=== PATIENT | female | born 1930 | race African-American/Black ===

== ENCOUNTER 2016-10-23 21:11 | Emergency (ER) | payer MEDICARE, OTHER ==
[~2016-10-23] VITALS: Ht 157.5 cm; Wt 49.9 kg
[~2016-10-23 21:11] MED LIST: NORVASC5 MG ORAL; RISPERDAL0.5 MG ORAL
[2016-10-23 21:20] VITALS: BP 152/75
--- NOTE | 2016-10-23 21:30 | Emergency Room Report ---
History of Present Illness General Chief Complaint: General Complaint Source: EMS Present Illness HPI The patient was brought in by EMS for cough. She also has an altered position of her neck. She is from home. There is very little other information present on the patient. The patient does not communicate at this time. Paramedics report abnormal O2 sats - but this is not documented. They also report OX3, but the patient has a h/o dementia and they also report GCS = 12. Allergies: Coded Allergies: PENICILLIN G (Verified Allergy, Unknown, 10/23/16) Patient History Limited by: medical condition Past Medical History: see triage record, HTN, dementia Social History Narrative home Now: No Reviewed Nursing Documentation: PMH: Agreed, PSxH: Agreed Nursing Documentation-PMH Past Medical History: No History, Except For Hx Hypertension: Yes Review of Systems All Other Systems: negative except mentioned in HPI Physical Exam Vital Signs Date Time Temp Pulse Resp B/P Pulse Ox O2 Delivery O2 Flow Rate FiO2 10/23/16 21:02 98.2 98 16 124/68 98 Room Air Sp02 EP Interpretation: reviewed, normal General Appearance: no apparent distress, Chronically Ill, Stupor Head: normocephalic Eyes: bilateral eye PERRL, bilateral eye normal inspection ENT: dry mucus membranes Neck: supple Respiratory: other - poor tidal volume Cardiovascular #1: regular rate, rhythm Cardiovascular #2: 2+ radial (R) Gastrointestinal: non tender, soft, no mass, abnormal bowel sounds - decreased Musculoskeletal: back normal, normal range of motion Neurologic: other - lethargic Psychiatric: other - stupor Skin: normal inspection, warm/dry Medical Decision Making Diagnostic Impression: Primary Impression: Influenza A Additional Impressions: UTI (urinary tract infection) Qualified Codes: N30.00 - Acute cystitis without hematuria Dehydration ER Course The patient presents with a cough at home. Differential includes pneumonia, bronchitis, COPD, asthma, CHF amongst others. Evaluation will be with EKG, laboratory including blood cultures lactates, urinalysis and chest x-ray. Patient will be treated with IV hydration and she appears dry. Based on x-ray we may start antibiotics. Patient more alert with fluids and oxygen. Lab + influenza A. Tamiflu begun. UA suggests UTI. CXR with L effusion and pleural process. Discussion with Dr. Bai at [facility]. States 2 view chest normal last month. Awaiting lytes and will discuss again. Patient stable for transfer to [facility]. Laboratory Tests Test 10/23/16 21:25 10/23/16 21:32 10/23/16 21:50 10/23/16 23:05 White Blood Count 10.3 K/UL (4.8-10.8) Red Blood Count 4.90 M/UL (4.20-5.40) Hemoglobin 14.8 G/DL (12.0-16.0) Hematocrit 44.9 % (37.0-47.0) Mean Corpuscular Volume 92 FL (80-99) Mean Corpuscular Hemoglobin 30.2 PG (27.0-31.0) Mean Corpuscular Hemoglobin Concent 32.9 G/DL (32.0-36.0) Red Cell Distribution Width 13.7 % (11.6-14.8) Platelet Count 137 K/UL (150-450) L Mean Platelet Volume 8.5 FL (6.5-10.1) Neutrophils (%) (Auto) 83.5 % (45.0-75.0) H Lymphocytes (%) (Auto) 11.9 % (20.0-45.0) L Monocytes (%) (Auto) 3.9 % (1.0-10.0) Eosinophils (%) (Auto) 0.0 % (0.0-3.0) Basophils (%) (Auto) 0.6 % (0.0-2.0) Prothrombin Time 11.1 SEC (9.30-11.50) Prothrombin Time INR 1.1 (0.9-1.1) PTT 24 SEC (23-33) Lactic Acid Level 1.80 mmol/L (0.66-2.22) Arterial Blood pH 7.451 (7.350-7.450) Arterial Blood Partial Pressure CO2 31.6 mmHg (35.0-45.0) L Arterial Blood Partial Pressure O2 44.3 mmHg (75.0-100.0) Arterial Blood HCO3 21.5 mmol/L (22.0-26.0) L Arterial Blood Oxygen Saturation 84.6 % (92.0-98.0) L Arterial Blood Base Excess -1.1 Antonino Test Positive Urine Color Yellow Urine Appearance Slightly cloudy Urine pH 5.0 (4.5-8.0) Urine Specific Brinson 1.015 (1.005-1.035) Urine Protein 2+ (NEGATIVE) H Urine Glucose (UA) Negative (NEGATIVE) Urine Ketones Negative (NEGATIVE) Urine Occult Blood 4+ (NEGATIVE) H Urine Nitrite Negative (NEGATIVE) Urine Bilirubin Negative (NEGATIVE) Urine Urobilinogen Normal MG/DL (0.0-1.0) Urine Leukocyte Esterase 1+ (NEGATIVE) H Urine RBC 10-15 /HPF (0 - 2) H Urine WBC 30-40 /HPF (0 - 2) H Urine Squamous Epithelial Cells Moderate /LPF (NONE/OCC) H Urine Bacteria Many /HPF (NONE) H Sodium Level 140 mEQ/L (135-145) Potassium Level 3.4 mEQ/L (3.4-4.9) Chloride Level 103 mEQ/L (98-107) Carbon Dioxide Level 19 mEQ/L (20-30) L Anion Gap 18 (5-15) H Blood Urea Nitrogen 11 mg/dL (7-23) Creatinine 0.9 mg/dL (0.5-0.9) Estimate Glomerular Filtration Rate mL/min (>60) Glucose Level 104 mg/dL (74-106) Calcium Level 7.6 mg/dL (8.6-10.2) L Total Bilirubin 0.4 mg/dL (0.0-1.2) Aspartate Amino Transferase (AST) 53 U/L (5-40) H Alanine Aminotransferase (ALT) 12 U/L (3-33) Alkaline Phosphatase 84 U/L (35-104) Total Creatine Kinase 1531 U/L (26-140) H Troponin I < 0.30 ng/mL (<=0.30) Pro-B-Type Natriuretic Peptide Pending Total Protein 5.5 g/dL (6.6-8.7) L Albumin 3.3 g/dL (3.5-5.2) L Globulin 2.2 g/dL Albumin/Globulin Ratio 1.5 (1.0-2.7) Microbiology Date/Time Source Procedure Growth Status 10/23/16 21:50 Nasal Nares Influenza Types A,B Antigen (JD) - Final Complete EKG Diagnostic Results Rate: normal Rhythm: NSR ST Segments: no acute changes Rhythm Strip Diag. Results EP Interpretation: yes Rhythm: NSR, no PVC's, no ectopy Chest X-Ray Diagnostic Results EP Interpretation: Yes Findings: no pneumothorax, other - effusion and L pleural reaction with possible infiltrate - L clavicular fx (clinically not tender there) Number of Views: 1 Last Vital Signs Date Time Temp Pulse Resp B/P Pulse Ox O2 Delivery O2 Flow Rate FiO2 10/24/16 01:30 98.4 92 22 118/62 100 Nasal Cannula 4.0 Status: improved Disposition: XFER [facility] Condition: Serious - but stable for transfer Yahir Shaver M.D. Oct 23, 2016 21:30
[2016-10-23 21:42] LABS: ABG PCO2 31.6 mmHg (35.0-45.0)
[2016-10-23 21:43] LABS: ABG ALLEN TEST POSITIVE; ABG BASE EXCESS -1.1
[2016-10-23 22:00] LABS: BASOPHILS % (AUTO) 0.6 % (0.0-2.0); LYMPHOCYTES % (AUTO) 11.9 % (20.0-45.0); MEAN CORPUSCULAR HEMOGLOBIN 30.2 PG (27.0-31.0); MEAN CORPUSCULAR HGB CONC 32.9 G/DL (32.0-36.0); MEAN CORPUSCULAR VOLUME 92 FL (80-99); MEAN PLATELET VOLUME 8.5 FL (6.5-10.1); MONOCYTES % (AUTO) 3.9 % (1.0-10.0); NEUTROPHILS % (AUTO) 83.5 % (45.0-75.0); PLATELET COUNT 137 K/UL (150-450); RED CELL DISTRIBUTION WIDTH 13.7 % (11.6-14.8); WHITE BLOOD COUNT 10.3 K/UL (4.8-10.8)
[2016-10-23] MEDS ORDERED: cefTRIAXone 1 GM in NS 55 ML IVPB ONE (22:00)
[2016-10-23 22:11] LABS: INR 1.1 (0.9-1.1); PROTHROMBIN TIME 11.1 SEC (9.30-11.50)
[2016-10-23 22:17] LABS: APPEARANCE,URINE SLIGHTLY CLOUDY; KETONES,URINE NEGATIVE (NEGATIVE); LEUKOCYTE ESTERASE ,URINE 1+ (NEGATIVE); NITRITE,URINE NEGATIVE (NEGATIVE); PROTEIN,URINE 2+ (NEGATIVE); UROBILINOGEN,URINE NORMAL MG/DL (0.0-1.0)
[2016-10-23 22:21] VITALS: BP 152/75
[2016-10-23 22:33] LABS: BACTERIA,URINE MANY /HPF; SQUAMOUS EPITHELIAL CELL,UR MODERATE /LPF (NONE/OCC); WBC,URINE 30-40 /HPF (0 - 2)
[2016-10-23] MEDS ORDERED: Oseltamivir 75mg cap ORAL ONE (23:00)
[2016-10-23 23:30] LABS: ALANINE AMINOTRANSFERASE 12 U/L (3-33); ALBUMIN/GLOBULIN RATIO 1.5 (1.0-2.7); ANION GAP 18 (5-15); ASPARTATE AMINO TRANSFERASE 53 U/L (5-40); CALCIUM 7.6 mg/dL (8.6-10.2); CARBON DIOXIDE 19 mEQ/L (20-30); CHLORIDE 103 mEQ/L (98-107); CREATININE 0.9 mg/dL (0.5-0.9); HEMOLYSIS 6; POTASSIUM 3.4 mEQ/L (3.4-4.9); SODIUM 140 mEQ/L (135-145); TOTAL PROTEIN 5.5 g/dL (6.6-8.7); TROPONIN I < 0.30 ng/mL (<=0.30)
[2016-10-24 00:13] VITALS: BP 114/62
[2016-10-24 01:30] VITALS: BP 118/62
--- NOTE | 2016-10-24 11:50 | Diagnostic Imaging Report ---
Indication: COUGH Technique: One view of the chest Comparison: none Findings: There is atelectasis at left lung base. There is atelectasis or scarring at the right lung base. Blunting of the left costophrenic sulcus may indicate a small amount of pleural fluid. The heart is mildly enlarged. Aorta is elongated tortuous and calcified. The upper mediastinum is unremarkable. There is fracture deformity, age and degree of union indeterminate, of the left clavicle. Impression: Left basilar atelectasis and possible pleural fluid Minimal right basilar atelectasis or scarring Left clavicular fracture. Correlate with clinical findings This agrees with the preliminary interpretation provided by the emergency room physician
--- NOTE | 2016-10-25 20:22 | Cardiology Report ---
APPROVED REPORT EKG Measurement Heart [id number] Normal sinus rhythm Normal ECG
== END 2016-10-24 01:30 | disposition short-term general hospital (02) ==
LOC: EDBD 21:11 → EMR 21:41
DX: J10.1 Influenza due to other identified influenza virus with other respiratory manifestations (principal); N39.0 Urinary tract infection, site not specified; E86.0 Dehydration; I10 Essential (primary) hypertension; Z88.0 Allergy status to penicillin; M84.412A Pathological fracture, left shoulder, initial encounter for fracture
CPT/HCPCS: 36415; 36600; 71010; 80053; 81003; 82550; 82803; 83605; 83880; 84484; 85025; 85610; 85730; 86710; 87040; 87086; 87181; 93005; 96360; 96361; 99285; J0696

== ENCOUNTER 2017-10-05 09:51 | Emergency (ER) | payer OTHER, MEDICARE ==
[~2017-10-05] VITALS: Ht 162.6 cm; Wt 68.0 kg
[2017-10-05 10:08] VITALS: BP 163/72
[2017-10-05] MEDS ORDERED: AMLODIPINE BESY10 MG ORAL (10:11)
[2017-10-05] MEDS ORDERED: ASPIR 8181 MG ORAL (10:11)
[2017-10-05] MEDS ORDERED: RISPERIDONE2 MG ORAL (10:11)
[2017-10-05] MEDS ORDERED: SERTRALINE HCL100 MG PO (10:11)
[2017-10-05] MEDS ORDERED: LORAZEPAM0.5 MG ORAL (10:11)
[2017-10-05] MEDS ORDERED: STOOL SOFTENER1 EAC3 PO (10:11)
[2017-10-05] MEDS ORDERED: RISPERIDONE1 MG/1 ML PO (10:11)
[2017-10-05] MEDS ORDERED: MIRALAX17 G2 ORAL (10:11)
--- NOTE | 2017-10-05 11:19 | Diagnostic Imaging Report ---
Indication: Hip pain Technique: continuous helical imaging in the transaxial plane was performed from the iliac crests to the pubic symphysis with attention to the right hip. Coronal 2-D reformatted images were also generated. Study obtained in a Siemens Sensation [address] total DLP: 407.19 mGycm CTD/vol: 14.76 mGy Comparison: None Findings: The right femoral head and neck appear intact. There is no malalignment of the right hip joint. There is an acute comminuted fracture of the right ilium in the area of the iliac wing. The fracture extends to the area of the anterior superior iliac spine. There is asymmetric enlargement of the right Iliacus muscle and soft tissue swelling just lateral to the right iliac wing consistent with a soft tissue contusion. The bones are osteopenic. Moderate degenerative changes of the visualized part of the lower lumbar spine demonstrated. Staple line noted in association with small bowel in the lower abdomen. Arteriovascular consultations are present. There is moderate retention of feces in the visualized colon. IMPRESSION: Acute fracture of the right iliac wing extending into the iliac fossa. There is involvement of the anterior superior iliac spine. Associated soft tissue contusion as discussed above. No acute fracture of the hip identified. Generalized osteopenia. Degenerative spondylosis of the visualized lower lumbar spine. Evidence of previous bowel surgery the nature of which is not known. The CT scanner at [facility] is accredited by the [employer] and the scans are performed using dose optimization techniques as appropriate to a performed exam including Automatic Exposure control.
--- NOTE | 2017-10-05 11:31 | Emergency Room Report ---
History of Present Illness General Chief Complaint: Multiple Trauma/Fall Source: Patient Present Illness HPI 86-year-old female, brought by [employer] administrator, for fall. Lab Aide was assisting her to the bathroom, patient's legs gave out and she fell onto her buttocks. No head trauma no LOC. Now complaining of pain to the right hip. No other complaints Allergies: Coded Allergies: PENICILLIN G (Verified Allergy, Unknown, 10/23/16) Patient History Past Medical History: see triage record Past Surgical History: none Pertinent Family History: none Reviewed Nursing Documentation: PMH: Agreed, PSxH: Agreed Nursing Documentation-PMH Past Medical History: No History, Except For Hx Cardiac Problems: Yes - Atherosclerosis of aorta, bilateral open glaucoma, dry eye syndrome Hx Hypertension: Yes - osteoporosis History Of Psychiatric Problem: Yes - Anxiety Hx Neurological Problems: Yes - AMS, Dementia Review of Systems All Other Systems: negative except mentioned in HPI Physical Exam Vital Signs Date Time Temp Pulse Resp B/P (MAP) Pulse Ox O2 Delivery O2 Flow Rate FiO2 10/05/17 09:58 97.2 83 16 180/72 95 Room Air Sp02 EP Interpretation: reviewed, normal General Appearance: alert, GCS 15, non-toxic, mild distress Head: normocephalic, atraumatic Eyes: bilateral eye normal inspection, bilateral eye PERRL, bilateral eye EOMI ENT: normal ENT inspection, normal pharynx, normal voice, moist mucus membranes Neck: normal inspection, full range of motion, supple Respiratory: normal inspection, lungs clear, normal breath sounds, no respiratory distress, no retraction, no wheezing, speaking full sentences, chest symmetrical Cardiovascular #1: normal inspection, regular rate, rhythm, no edema, normal capillary refill Cardiovascular #2: 2+ radial (R), 2+ radial (L) Gastrointestinal: normal inspection, non tender, soft, non-distended, no guarding Musculoskeletal: other - Right hip is tender to palpation, limited range of motion secondary to pain, limb is not shortened or rotated, distal pulses are intact, no ecchymosis Neurologic: normal inspection, alert, oriented x3, responsive, motor strength/ tone normal, sensory intact, speech normal Psychiatric: normal inspection, judgement/insight normal, memory normal Skin: normal inspection, normal color, no rash, warm/dry, well hydrated, normal turgor Medical Decision Making Diagnostic Impression: Primary Impression: Fracture of iliac wing ER Course 86-year-old female presents with fall, now with right hip pain DDX: Contusion versus fracture Plan: Pain control, CT hip ER course: Patient has remained stable during ED stay. Fracture of iliac crest noted, I spoke with orthopedic doctor Henry, conservative treatment only. Patient is not require admission Lab Aide instructred to be with patient 10/04. and not have patient walk Disposition: Patient is to be discharged to home with [employer] administrator Prescriptions given are Tylenol Patient is instructed to follow up with orthopedics in 1 week Strict return precautions discussed with patient such as fever, chills, worsening/severe pain, chest pain, SOB, nausea, vomiting, which may indicate severe illness. Patient verbalizes understanding and agrees with plan. Please note that this Emergency Department Report was dictated using [employer] stucco technology software, occasionally this can lead to erroneous entry secondary to interpretation by the dictation equipment CT/MRI/US Diagnostic Results CT/MRI/US Diagnostic Results : Imaging Test Ordered: CT hip Impression Findings: The right femoral head and neck appear intact. There is no malalignment of the right hip joint. There is an acute comminuted fracture of the right ilium in the area of the iliac wing. The fracture extends to the area of the anterior superior iliac spine. There is asymmetric enlargement of the right Iliacus muscle and soft tissue swelling just lateral to the right iliac wing consistent with a soft tissue contusion. The bones are osteopenic. Moderate degenerative changes of the visualized part of the lower lumbar spine demonstrated. Staple line noted in association with small bowel in the lower abdomen. Arteriovascular consultations are present. There is moderate retention of feces in the visualized colon. IMPRESSION: Acute fracture of the right iliac wing extending into the iliac fossa. There is involvement of the anterior superior iliac spine. Associated soft tissue contusion as discussed above. No acute fracture of the hip identified. Generalized osteopenia. Degenerative spondylosis of the visualized lower lumbar spine. Evidence of previous bowel surgery the nature of which is not known. Last Vital Signs Date Time Temp Pulse Resp B/P (MAP) Pulse Ox O2 Delivery O2 Flow Rate FiO2 10/05/17 10:08 80 19 163/72 98 Room Air 10/05/17 09:58 97.2 Disposition: HOME, SELF-CARE Condition: Stable Scripts Acetaminophen* (TYLENOL EXTRA STRENGTH*) 500 Mg Tablet 500 MG ORAL Q8H Y for Prn Headache/Temp > 101, #30 TAB 0 Refills Prov: Casimiro Hauser M.D. 10/05/17 Casimiro Hauser M.D. Oct 05, 2017 11:31
[2017-10-05] MEDS ORDERED: TYLENOL EXTRA500 MG ORAL (11:44)
[2017-10-05 12:45] VITALS: BP 137/67
[2017-10-05 13:15] VITALS: BP 137/67
== END 2017-10-05 13:15 | disposition home or self-care (01) ==
LOC: EMR 12:00
DX: S32.301A Unspecified fracture of right ilium, initial encounter for closed fracture (principal); W19.XXXA Unspecified fall, initial encounter; Y92.002 Bathroom of unspecified non-institutional (private) residence as the place of occurrence of the external cause; Z88.0 Allergy status to penicillin; H40.10X0 Unspecified open-angle glaucoma, stage unspecified; F03.90 Unspecified dementia, unspecified severity, without behavioral disturbance, psychotic disturbance, mood disturbance, and anxiety; F41.9 Anxiety disorder, unspecified; M85.80 Other specified disorders of bone density and structure, unspecified site; M47.816 Spondylosis without myelopathy or radiculopathy, lumbar region
CPT/HCPCS: 99284

== ENCOUNTER 2017-11-24 15:25 | Emergency (ER) | payer MEDICARE, OTHER ==
[~2017-11-24] VITALS: Ht 167.6 cm; Wt 49.9 kg
[~2017-11-24 15:25] MED LIST changes: +AMLODIPINE BESY10 MG ORAL; +ASPIR 8181 MG ORAL; +LORAZEPAM0.5 MG ORAL; +MIRALAX17 G2 ORAL; +RISPERIDONE1 MG/1 ML PO; +RISPERIDONE2 MG ORAL; +SERTRALINE HCL100 MG PO; +STOOL SOFTENER1 EAC3 PO; +TYLENOL EXTRA500 MG ORAL
[2017-11-24 15:43] VITALS: BP 116/66
[2017-11-24] MEDS ORDERED: CRANBERRY300 MG PO (16:13)
[2017-11-24] MEDS ORDERED: Lidocaine 1% MPF 10mg/ml 5ml INJ ONE (16:15)
--- NOTE | 2017-11-24 17:47 | Emergency Room Report ---
History of Present Illness General Chief Complaint: Skin Rash/Abscess Source: Patient, Medical Record Present Illness HPI 86-year-old female presents to the emergency department brought with caregiver from boarding care for abscess on the buttock. Patient denies pain at this time she states that she is legally blind and she does not walk on her own without assistance due to frequent falls. Caregiver reports swelling, erythema and abscess to the left buttock. Denies fevers or chills. Denies lesions elsewhere on the body. Denies history of abscess or skin ulcers. Denies CP, Palpitations, LOC, AMS, dizziness, Changes in Sensation, paresthesias, or a sudden severe headache. Allergies: Coded Allergies: PENICILLIN G (Verified Allergy, Unknown, 10/23/16) Patient History Past Medical History: see triage record Past Surgical History: none Pertinent Family History: none Now: No Reviewed Nursing Documentation: PMH: Agreed, PSxH: Agreed Nursing Documentation-PMH Past Medical History: No History, Except For Hx Cardiac Problems: Yes - Atherosclerosis of aorta, bilateral open glaucoma, dry eye syndrome Hx Hypertension: Yes - osteoporosis Hx Neurological Problems: Yes - AMS, Dementia Review of Systems All Other Systems: negative except mentioned in HPI Physical Exam Vital Signs Date Time Temp Pulse Resp B/P (MAP) Pulse Ox O2 Delivery O2 Flow Rate FiO2 11/24/17 15:30 97.9 77 18 116/66 95 Room Air 97.9 Sp02 EP Interpretation: reviewed, normal General Appearance: no apparent distress, alert, GCS 15, non-toxic, Chronically Ill Head: normocephalic, atraumatic ENT: hearing grossly normal, normal voice Neck: full range of motion Respiratory: chest non-tender, lungs clear, normal breath sounds, no respiratory distress, no accessory muscle use, no wheezing, speaking full sentences Cardiovascular #1: regular rate, rhythm, no edema, normal capillary refill Rectal: deferred, other - Abscess of the left buttock- fluctuant and weeping with purulence, there is 2cm area of induration palpated.. there is also superficial decubitus ulcer noted about the abscess and extends Musculoskeletal: back normal, normal range of motion, non-tender Neurologic: alert, oriented x3, responsive, motor strength/tone normal, sensory intact, speech normal, grossly normal Psychiatric: judgement/insight normal, mood/affect normal Skin: warm/dry, well hydrated, other - Abscess of the left buttock- fluctuant and weeping with purulence, there is 2cm area of induration palpated.. there is also superficial decubitus ulcer noted about the abscess and extends Procedures Incision and Drainage Incision and Drainage : Consent: Verbal Site: Left Buttock Blade Size: 11 I & D Procedure: betadine prep Wound Location: other - left buttock Wound's Depth, Shape: superficial, linear Wound Length (cm): 1 Wound Explored: contaminated Anesthesia: 1% Lidocaine Volume Anesthetic (ccs): 2 Splint Applied?: No Sling Applied?: No Patient Tolerated: Well Complications: None Progress wound packing placed. Medical Decision Making PA Attestation Dr. Delcid is my supervising Physician whom patient management has been discussed with. Diagnostic Impression: Primary Impression: Abscess Additional Impression: Decubitus skin ulcer Qualified Codes: L89.301 - Pressure ulcer of unspecified buttock, stage 1 ER Course Pt. presents to the ED c/o pain, swelling, and erythema of LEFt side of buttock , decub ulcer beginning no sacrum as well. Pt. is blind, lives at board and care , has a caregiver. Ddx considered but are not limited to cellulitis, abscess, cystic acne, necrotizing fasciitis, insect bite. Vital signs: are WNL, pt. is afebrile H&PE are most consistent with Abscess of the left buttock- fluctuant and weeping with purulence, there is 2cm area of induration palpated.. there is also superficial decubitus ulcer noted about the abscess and extends across the sacrum. ORDERS: none required at this time, the diagnosis is clinical ED INTERVENTIONS: -I & D. - Wound Packing -d/w pt. return in 48 hour for Wound Check. - kennedi baldwin was d/w caregiver upon d/c and career and guidance counselor states she most likely will follow up with her PCP. DISCHARGE: At this time pt. is stable for d/c to home. Will provide printed patient care instructions, and any necessary prescriptions. Care plan and follow up instructions have been discussed with the patient prior to discharge. Last Vital Signs Date Time Temp Pulse Resp B/P (MAP) Pulse Ox O2 Delivery O2 Flow Rate FiO2 11/24/17 15:43 97.9 77 18 116/66 95 Room Air 97.9 Disposition: HOME, SELF-CARE Condition: Stable Scripts Acetaminophen* (TYLENOL EXTRA STRENGTH*) 500 Mg Tablet 500 MG ORAL Q6H, #20 TAB 0 Refills Prov: Emely Atkins 11/24/17 Clindamycin Hcl (CLINDAMYCIN HCL) 300 Mg Capsule 300 MG ORAL FOUR TIMES A DAY for 7 Days, #28 CAP Prov: Emely Atkins 11/24/17 Referrals: [facility] (PCP) Patient Instructions: Abscess, Pressure Ulcer Additional Instructions: Take medications as directed. RETURN IN 48 HOURS FOR WOUND CHECK and Possible Packing REMOVAL Turn or move positioning off the sacrum/buttock every 2 hours. Follow up with a Primary Care Provider in 3-5 days, even if your symptoms have resolved. --Please review list of primary care clinics, if you do not already have a primary care provider Return sooner to ED if new symptoms occur, or current symptoms become worse. - Please note that this Emergency Department Report was dictated using [employer] player technology software, occasionally this can lead to erroneous entry secondary to interpretation by the dictation equipment. Emely Atkins Nov 24, 2017 17:47
[2017-11-24] MEDS ORDERED: CLINDAMYCIN HC300 MG ORAL (17:49)
[2017-11-24] MEDS ORDERED: TYLENOL EXTRA500 MG ORAL (17:49)
[2017-11-24 17:53] VITALS: BP 113/63
[2017-11-24 19:12] VITALS: BP 113/63
== END 2017-11-24 19:12 | disposition home or self-care (01) ==
LOC: EMR 16:51
DX: L02.31 Cutaneous abscess of buttock (principal); L89.329 Pressure ulcer of left buttock, unspecified stage; I10 Essential (primary) hypertension; F03.90 Unspecified dementia, unspecified severity, without behavioral disturbance, psychotic disturbance, mood disturbance, and anxiety; M81.0 Age-related osteoporosis without current pathological fracture; Z88.0 Allergy status to penicillin
CPT/HCPCS: 10060; 99284

== ENCOUNTER 2018-03-17 11:48 | Emergency (ER) | payer MEDICARE, OTHER ==
[~2018-03-17] VITALS: Ht 162.6 cm; Wt 68.0 kg
[~2018-03-17 11:48] MED LIST changes: +CLINDAMYCIN HC300 MG ORAL; +CRANBERRY300 MG PO
[2018-03-17] MEDS ORDERED: Aspirin Baby 81mg ORAL ONE (12:15)
[2018-03-17] MEDS ORDERED: LORAZEPAM0.5 MG ORAL (12:18)
[2018-03-17] MEDS ORDERED: MIRALAX17 G2 ORAL (12:18)
[2018-03-17 12:48] LABS: BASOPHILS % (AUTO) 0.8 % (0.0-2.0); EOSINOPHILS % (AUTO) 1.3 % (0.0-3.0); HEMATOCRIT 43.5 % (37.0-47.0); HEMOGLOBIN 14.4 G/DL (12.0-16.0); LYMPHOCYTES % (AUTO) 25.4 % (20.0-45.0); MEAN CORPUSCULAR VOLUME 90 FL (80-99); MONOCYTES % (AUTO) 8.3 % (1.0-10.0); NEUTROPHILS % (AUTO) 64.1 % (45.0-75.0); PLATELET COUNT 325 K/UL (150-450); RED BLOOD COUNT 4.83 M/UL (4.20-5.40); RED CELL DISTRIBUTION WIDTH 13.4 % (11.6-14.8)
--- NOTE | 2018-03-17 12:53 | Emergency Room Report ---
History of Present Illness General Chief Complaint: General Complaint Source: Medical Record Present Illness HPI 87-year-old female patient presents to ER brought in by caretakers with multiple complaints. Reports lesion on right lower leg since yesterday. Reports patient has been itching and has worsened since that time. Also complains of pain near right breast for the past few days, Reports reproducible pain, worse with certain movements. [employer] Secrecy Act Officer also reports smelling odor and patient's urine, patient denies dysuria, hematuria. Denies fever, chest pain, shortness of breath, vomiting, diarrhea. Denies history of IA or stroke. Reports last mammogram a few months ago, no abnormal results. Denies taking blood thinners. denies coughing or recent injury. Allergies: Coded Allergies: AMITRIPTYLINE (Verified Allergy, Unknown, 03/17/18) HYDROCHLOROTHIAZIDE (Verified Allergy, Unknown, 03/17/18) LISINOPRIL (Verified Allergy, Unknown, 03/17/18) PENICILLIN G (Verified Allergy, Unknown, 10/23/16) PROCAINE (Verified Allergy, Unknown, 03/17/18) Uncoded Allergies: EGGS (Allergy, Unknown, 03/17/18) INFLUENZA VACCINE (Allergy, Unknown, 03/17/18) PNEUMOCCAL VACCINE (Allergy, Unknown, 03/17/18) Patient History Past Medical History: see triage record Reviewed Nursing Documentation: PMH: Agreed; PSxH: Agreed Nursing Documentation-PMH Past Medical History: No History, Except For Hx Cardiac Problems: Yes - Atherosclerosis of aorta, bilateral open glaucoma, dry eye syndrome Hx Hypertension: Yes - osteoporosis Hx Neurological Problems: Yes - AMS, Dementia Review of Systems All Other Systems: negative except mentioned in HPI Physical Exam Vital Signs Date Time Temp Pulse Resp B/P (MAP) Pulse Ox O2 Delivery O2 Flow Rate FiO2 03/17/18 11:59 98.1 78 16 111/64 96 Room Air 98.1 Sp02 EP Interpretation: reviewed, normal General Appearance: well appearing, no apparent distress, alert, GCS 15, non- toxic Head: normocephalic, atraumatic Eyes: bilateral eye normal inspection, bilateral eye PERRL ENT: hearing grossly normal, normal pharynx, no angioedema, normal voice, uvula midline, moist mucus membranes Neck: full range of motion Respiratory: lungs clear, normal breath sounds, no rhonchi, no respiratory distress, no accessory muscle use, no wheezing, speaking full sentences, other - right anterior upper chest TTP, no deformity, no flail chest Cardiovascular #1: regular rate, rhythm, no edema Cardiovascular #2: 2+ radial (R), 2+ radial (L) Gastrointestinal: non tender, soft, no mass, non-distended, no guarding, no rebound Genitourinary: no CVA tenderness Musculoskeletal: back normal, digits/nails normal, normal range of motion, non- tender, no calf tenderness, Wilton's Sign negative Neurologic: alert, oriented x3, responsive, motor strength/tone normal, sensory intact Psychiatric: mood/affect normal Skin: other - right lower leg, lateral midshaft: 2 cm lesion, mild scabbing present, no active bleeding, no active drainage, no central clearing, no vesicles, no surrounding erythema or edema Medical Decision Making PA Attestation Dr. Muhammad is my supervising Physician whom patient management has been discussed with. Diagnostic Impression: Primary Impression: UTI (urinary tract infection) Additional Impressions: Skin lesion of right lower limb Rib pain on right side ER Course Pt. presents to the ED c/o skin lesion, right upper rib pain and foul-smelling urine. multiple differentials considered. Vital signs: are WNL, pt. is afebrile ER course: Lesion on leg superficial, no signs of cellulitis, no surrounding erythema or edema, worsening of symptoms likely due to patient scratching. Instructed not to scratch. Will provide topical treatment for patient. keep clean and dry. applied bacitracin to wound in ER. physical exam shows tenderness to palpation of right upper quadrant, no signs of breast abscess, no palpable masses, no rash. Likely musculoskeletal pain. Will order chest x-ray to rule out underlying etiology. instructed patient to take Tylenol for relief of symptoms. Negative troponin, negative cardiac workup, follow-up with primary care provider for further treatment and referral as needed. CBC and CMP unremarkable, no elevation in troponin, white blood cell count or LFTs. EKGs shows no ST elevations. Low suspicion for IA. chest x-ray shows decreased lung volumes, atelectasis. May be rotational. Low suspicion for aortic dissection. UA positive for leukocyte esterase, too numerous to count white blood cells, bacteria, likely UTI, will provide antibiotic treatment for patient, patient denies fever, vomiting, abdominal pain, does not require admission for antibiotic treatment at this time. patient resting comfortably, in no acute distress, nontoxic-appearing, no acute complaints, no chest pain, shortness of breath, abdominal pain patient okay for discharge to home. Patient will be taken back home by caretakers. consult , patient seen and evaluated by him, agrees with evaluation and treatment plan. DISCHARGE: Rx provided for Levaquin Rx provided for Bactroban At this time pt is stable for d/c to home. Patient is resting comfortably, in no acute distress, nontoxic appearing, talking without difficulty. Patient to take medications as instructed Will provide with patient care instructions and any necessary prescriptions. Care plan and follow-up instructions provided. Patient instructed to follow-up with primary care provider in 3 - 5 days. Patient questions asked and answered. Patient reports understanding and agreement to treatment plan. ER precautions given. Patient instructed to return to ER immediately for any new or worsening of symptoms including but not limited to increasing SOB, persistent fever, chest pain, intractable vomiting. - Please note that this Emergency Department Report was dictated using [employer] instructor technology software, occasionally this can lead to erroneous entry secondary to interpretation by the dictation equipment. Labs Test 03/17/18 12:35 03/17/18 13:20 White Blood Count 10.0 K/UL (4.8-10.8) Red Blood Count 4.83 M/UL (4.20-5.40) Hemoglobin 14.4 G/DL (12.0-16.0) Hematocrit 43.5 % (37.0-47.0) Mean Corpuscular Volume 90 FL (80-99) Mean Corpuscular Hemoglobin 29.8 PG (27.0-31.0) Mean Corpuscular Hemoglobin Concent 33.1 G/DL (32.0-36.0) Red Cell Distribution Width 13.4 % (11.6-14.8) Platelet Count 325 K/UL (150-450) Mean Platelet Volume 6.7 FL (6.5-10.1) Neutrophils (%) (Auto) 64.1 % (45.0-75.0) Lymphocytes (%) (Auto) 25.4 % (20.0-45.0) Monocytes (%) (Auto) 8.3 % (1.0-10.0) Eosinophils (%) (Auto) 1.3 % (0.0-3.0) Basophils (%) (Auto) 0.8 % (0.0-2.0) Sodium Level 138 MMOL/L (136-145) Potassium Level 3.9 MMOL/L (3.5-5.1) Chloride Level 103 MMOL/L (98-107) Carbon Dioxide Level 28 MMOL/L (21-32) Anion Gap 7 mmol/L (5-15) Blood Urea Nitrogen 17 mg/dL (7-18) Creatinine 1.3 MG/DL (0.55-1.30) Estimat Glomerular Filtration Rate mL/min (>60) Glucose Level 100 MG/DL (74-106) Calcium Level 9.3 MG/DL (8.5-10.1) Total Bilirubin 0.3 MG/DL (0.2-1.0) Aspartate Amino Transf (AST/SGOT) 29 U/L (15-37) Alanine Aminotransferase (ALT/SGPT) 21 U/L (12-78) Alkaline Phosphatase 111 U/L (46-116) Total Creatine Kinase 349 U/L (26-308) Creatine Kinase MB 1.9 NG/ML (0.0-3.6) Creatine Kinase MB Relative Index 0.5 Troponin I 0.000 ng/mL (0.000-0.056) Total Protein 7.3 G/DL (6.4-8.2) Albumin 3.0 G/DL (3.4-5.0) Globulin 4.3 g/dL Albumin/Globulin Ratio 0.7 (1.0-2.7) Lipase 297 U/L (73-393) Urine Color Pale yellow Urine Appearance Cloudy Urine pH 6 (4.5-8.0) Urine Specific [place] 1.015 (1.005-1.035) Urine Protein 2+ (NEGATIVE) Urine Glucose (UA) Negative (NEGATIVE) Urine Ketones Negative (NEGATIVE) Urine Occult Blood 3+ (NEGATIVE) Urine Nitrite Negative (NEGATIVE) Urine Bilirubin Negative (NEGATIVE) Urine Urobilinogen Normal MG/DL (0.0-1.0) Urine Leukocyte Esterase 3+ (NEGATIVE) Urine RBC 5-10 /HPF (0 - 2) Urine WBC Tntc /HPF (0 - 2) Urine Squamous Epithelial Cells Few /LPF (NONE/OCC) Urine Bacteria Moderate /HPF (NONE) EKG Diagnostic Results Rate: normal Rhythm: NSR ST Segments: no acute changes ASA given to the pt in ED: Yes HAY ScribAlpesh Nunn PA-C Rhythm Strip Diag. Results EP Interpretation: yes Rate: 73 Rhythm: NSR Other Impression premature atrial complexes no ST elevations HAY Scribe Chari Nunn PA-C Chest X-Ray Diagnostic Results Chest X-Ray Diagnostic Results : Chest X-Ray Ordered: Yes # of Views/Limited/Complete: 1 View Indication: Chest Pain EP Interpretation: Yes PA Xray: Interpretation reviewed, by supervising MD, and agrees with findings. Interpretation: no effusion, no pneumothorax, other - decreased lung volumes , atelectasis in left lung base and right lung bases, no fracture HAY Scribe Chari Nunn PA-C Last Vital Signs Date Time Temp Pulse Resp B/P (MAP) Pulse Ox O2 Delivery O2 Flow Rate FiO2 03/17/18 11:59 98.1 78 16 111/64 96 Room Air 98.1 Disposition: HOME, SELF-CARE Condition: Stable Scripts Levofloxacin* (LEVAQUIN*) 750 Mg Tablet 750 MG ORAL DAILY for 7 Days, #7 TAB Prov: Ac Nunn 03/17/18 Mupirocin Calcium (Bactroban) 15 Gm Cream..g. 1 APPLIC TOPIC THREE TIMES A DAY, #15 GM Prov: Ac Nunn 03/17/18 Patient Instructions: Abrasion, [id number], Rib Contusion, Urinary Tract Infection, [id number] Additional Instructions: Followup with primary care provider and followup with and./or OBGYN. Drink plenty of fluids. Take medications as directed. Follow-up with PCP and discuss referral to cardiology as needed. Keep wound clean and dry. Do not scratch. Patient questions asked and answered. ER precautions given, patient instructed to return to ER immediately for any new or worsening of symptoms. Ac Nunn Mar 17, 2018 12:53
[2018-03-17 13:00] VITALS: BP 136/64
[2018-03-17] MEDS ORDERED: Acetaminophen 500mg (ES) tab ORAL ONE (13:00)
[2018-03-17 13:01] LABS: ANION GAP 7 mmol/L (5-15); BLOOD UREA NITROGEN 17 mg/dL (7-18); CALCIUM 9.3 MG/DL (8.5-10.1); CARBON DIOXIDE 28 MMOL/L (21-32); CHLORIDE 103 MMOL/L (98-107); CREATININE 1.3 MG/DL (0.55-1.30); POTASSIUM 3.9 MMOL/L (3.5-5.1); SODIUM 138 MMOL/L (136-145)
--- NOTE | 2018-03-17 13:08 | Diagnostic Imaging Report ---
EXAM: XR Chest, 1 View CLINICAL HISTORY: PAIN TECHNIQUE: Frontal view of the chest. COMPARISON: No relevant prior studies available. FINDINGS: Lungs: Reduced lung volumes with consolidative atelectasis in the left lung base and linear atelectasis in the right lung base. Pleural space: Unremarkable. No pneumothorax. Heart: Unremarkable. No cardiomegaly. Mediastinum: Unremarkable. Bones/joints: No acute fracture. Old left clavicle fracture IMPRESSION: Reduced lung volumes with consolidative atelectasis in the left lung base and linear atelectasis in the right lung base.
[2018-03-17 13:13] LABS: ALANINE AMINOTRANSFERASE 21 U/L (12-78); ALBUMIN/GLOBULIN RATIO 0.7 (1.0-2.7); ALKALINE PHOSPHATASE 111 U/L (46-116); ASPARTATE AMINO TRANSFERASE 29 U/L (15-37); BILIRUBIN,TOTAL 0.3 MG/DL (0.2-1.0); CKMB 1.9 NG/ML (0.0-3.6); CREATINE KINASE 349 U/L (26-308)
[2018-03-17] MEDS ORDERED: Bacitracin Oint UD TOPIC ONE (13:30)
[2018-03-17 14:03] LABS: APPEARANCE,URINE CLOUDY; BILIRUBIN, URINE NEGATIVE (NEGATIVE); COLOR,URINE PALE YELLOW; GLUCOSE, URINE (UA) NEGATIVE (NEGATIVE); KETONES,URINE NEGATIVE (NEGATIVE); LEUKOCYTE ESTERASE ,URINE 3+ (NEGATIVE); NITRITE,URINE NEGATIVE (NEGATIVE); PH,URINE 6 (4.5-8.0); PROTEIN,URINE 2+ (NEGATIVE); UROBILINOGEN,URINE NORMAL MG/DL (0.0-1.0)
[2018-03-17] MEDS ORDERED: BACTROBAN CR1 APPLIC TOPIC (14:30)
[2018-03-17] MEDS ORDERED: LEVAQUIN750 MG ORAL (14:30)
[2018-03-17 14:50] VITALS: BP 127/60
--- NOTE | 2018-03-18 17:43 | Cardiology Report ---
APPROVED REPORT EKG Measurement Heart [id number] Sinus rhythm with premature atrial complexes Otherwise normal ECG
== END 2018-03-17 14:52 | disposition home or self-care (01) ==
LOC: EMR 12:25
DX: N39.0 Urinary tract infection, site not specified (principal); L98.9 Disorder of the skin and subcutaneous tissue, unspecified; R07.81 Pleurodynia; I10 Essential (primary) hypertension; M81.0 Age-related osteoporosis without current pathological fracture; F03.90 Unspecified dementia, unspecified severity, without behavioral disturbance, psychotic disturbance, mood disturbance, and anxiety; Z91.012 Allergy to eggs; Z88.0 Allergy status to penicillin; Z88.7 Allergy status to serum and vaccine
CPT/HCPCS: 36415; 71045; 80053; 81003; 82550; 82553; 83690; 84484; 85025; 87086; 87181; 93005; 99284